=== PATIENT | female | born 1960 ===

== ENCOUNTER 2017-03-23 05:47 | Inpatient (IN) | payer OTHER ==
--- NOTE | 2017-03-22 09:46 | GHP ---
[f rep st] PREOP HISTORY AND PHYSICAL HISTORY: The patient is a 56-year-old female, who presents with longstanding right knee pain, more than 5 years. She has pain with activities. She has stiffness, swelling and she is limping. She has tricompartment right knee osteoarthritis. She has tried appropriate conservative measures, including medications and exercises and steroid injection as well as viscosupplementation. Her arthritic knee is impacting her quality of life. She has elected to proceed with a right total knee arthroplasty. ALLERGIES: No known drug allergies. SOCIAL HISTORY: She is a nonsmoker. MEDICATIONS: She is using losartan 25 mg tablets as well as Voltaren 1% topical gel. PAST SURGICAL HISTORY: GI surgery in 2010. REVIEW OF SYSTEMS: Negative for cardiopulmonary disease. PHYSICAL EXAM: GENERAL: The patient is a well-developed, well-nourished female in no apparent distress. HEAD AND NECK: Normocephalic, atraumatic. CHEST: Clear. CARDIOVASCULAR: Regular rate and rhythm. ABDOMEN: Soft. NEUROLOGIC: She is alert and oriented x3. EXTREMITIES: Examination of the right knee shows a flexion contracture of 10 degrees, she is flexing to about 120 degrees. Ligamentously, the knee appears stable though there is pseudolaxity medially where she is arthritic. She has significant medial joint line tenderness and tenderness around the patellar facets as well. Skin and neurovascular exam is intact. IMAGING: X-rays show right knee tricompartment osteoarthritis severe in the medial and patellofemoral spaces that are bone to bone. There is degenerative lipping, subchondral sclerosis and varus malalignment. IMPRESSION: Right knee osteoarthritis. PLAN: Right total knee arthroplasty. Benefits and risks of surgery have been reviewed. She understands that the risks include infection, damage to blood vessel or nerve, failure or loosening of the components and need for revision, blood clot in the leg or lungs, bleeding and need for transfusion. I have reviewed the rigorous nature of the rehabilitation. She has signed a consent form and she wishes to proceed. /[id number]/MODL MTDD
[2017-03-23] MEDS ORDERED: ROPIVACAINE 0.2% 80 MG, EPINEPHrine 0.2 MG, KETOROLAC TROMETHAMINE 30 MG in BAG 0 ML IU ONE (06:00)
[2017-03-23] MEDS ORDERED: FAMOTIDINE 20 MG TAB PO ONE (06:00)
[2017-03-23] MEDS ORDERED: ACETAMINOPHEN 325 MG TAB PO ONE (06:00)
[2017-03-23] MEDS ORDERED: POVIDONE-IODINE 20 ML in SODIUM CL IRRIG SOLUTION 500 ML IRR ONE (06:00)
[2017-03-23] MEDS ORDERED: TRANEXAMIC ACID 850 MG in NS 100 ML IV ONE (06:00)
[2017-03-23] MEDS ORDERED: ceFAZolin 2 GM/SWFI 2 GM/20 ML SYR IVP ONE (06:00)
[2017-03-23] MEDS ORDERED: TRANEXAMIC ACID 1,700 MG in NS 100 ML IV ONE (06:00)
[2017-03-23] MEDS ORDERED: DEXAMETHASONE 4 MG/ML VIAL IVP ONE (06:00)
[2017-03-23] MEDS ORDERED: LIDOCAINE 1% 2 ML INJ ID PRN (06:10)
[2017-03-23] MEDS ORDERED: LR 1,000 ML IV ONE (06:10)
[2017-03-23] MEDS ORDERED: ceFAZolin 1 GM/5 ML SYR ONE (06:17)
[2017-03-23] MEDS ORDERED: MIDAZOLAM 2 MG/2 ML VIAL IVP ONE (07:11)
--- NOTE | 2017-03-23 07:13 | PDANEPAE ---
ANE Past Medical History - Cardiovascular History Hx Hypertension: Yes Hx Arrhythmias: No Hx Chest Pain: No Hx Coronary Artery / Peripheral Vascular Disease: No Hx CHF / Valvular Disease: No Hx Palpitations: No Cardiovascular History Comment: pcp monitoring bp- recently started lisinopril to have good bp's for surgery - Pulmonary History Hx COPD: No Hx Asthma/Reactive Airway Disease: No Hx Recent Upper Respiratory Infection: No Hx Oxygen in Use at Home: No Hx Sleep Apnea: No Sleep Apnea Screening Result - Last Documented: Negative - Neurologic History Hx Cerebrovascular Accident: No Hx Seizures: No Hx Dementia: No - Endocrine History Hx Diabetes: No - Renal History Hx Renal Disorders: No - Liver History Hx Hepatic Disorders: No - Neurological & Psychiatric Hx Hx Neurological and Psychiatric Disorders: No - Cancer History Hx Cancer: Yes Cancer History Comment: skin ca removed - Congenital Disorder History Hx Congenital Disorders: No - GI History Hx Gastrointestinal Disorders: No - Other Health History Other Health History: wears glasses occ - Chronic Pain History Chronic Pain: Yes (right knee) - Surgical History Prior Surgeries: halley ANE Review of Systems Review of Systems: - Exercise capacity METS (RN): 4 METS ANE Patient History - Allergies Allergies/Adverse Reactions: No Known Allergies Allergy (Verified 02/16/17 10:38) - Home Medications Home Medications: Cholecalciferol Vit D3 [Vitamin D3 2000 units tab (OTC)] 2,000 units PO DAILY [Last Taken 03/15/17] Herbals/Supplements -Info Only 1 ea PO DAILY 02/11/17 [Last Taken 03/15/17] Ibuprofen [Motrin (*)] 200 mg PO DAILY PRN 02/11/17 [Last Taken 03/15/17] Losartan Potassium 25 mg 03/23/17 [Last Taken 03/22/17] - NPO status NPO Since - Liquids (Date): 03/22/17 NPO Since - Liquids (Time): 21:00 NPO Since - Solids (Date): 03/22/17 NPO Since - Solids (Time): 21:00 - Anes Hx Anes Hx: no prior problems - Smoking Hx Smoking Status: Never smoked - Family Anes Hx Family Hx Anesthesia Complications: none ANE Labs/Vital Signs - Vital Signs Blood Pressure: 136/81 Heart Rate: 66 Respiratory Rate: 20 O2 Sat (%): 94 Height: 166.37 cm Weight: 84.822 kg ANE Physical Exam - Airway Neck exam: FROM Mouth exam: normal dental/mouth exam - Pulmonary Pulmonary: no respiratory distress, no rales or rhonchi, clear to auscultation - Cardiovascular Cardiovascular: regular rate and rhythym, no murmur, rub, or gallop - ASA Status ASA Status: II ANE Anesthesia Plan Anesthesia Plan: spinal Regional Anesthesia: adductor canal FNB
[2017-03-23] MEDS ORDERED: MIDAZOLAM 2 MG/2 ML VIAL ONE (07:18)
[2017-03-23] MEDS ORDERED: BUPIVACAINE/EPI 0.5% 30 ML SDV ONE (07:24)
[2017-03-23] MEDS ORDERED: fentaNYL 100 MCG/2 ML INJ ONE (07:25)
[2017-03-23] MEDS ORDERED: PROPOFOL/EMULSION 500 MG/50 ML BOTTLE IV ONE (07:26)
[2017-03-23] MEDS ORDERED: DEXAMETHASONE 4 MG/ML VIAL ONE ×2 (07:26)
[2017-03-23] MEDS ORDERED: LIDOCAINE 2% 5 ML SDV ONE ×2 (08:23)
[2017-03-23] MEDS ORDERED: MEPERIDINE 25 MG/ML SYR IVP PRN (09:06)
[2017-03-23] MEDS ORDERED: PROMETHAZINE HCL 25 MG/ML INJ IVP PRN ×2 (09:06→10:16)
[2017-03-23] MEDS ORDERED: fentaNYL 100 MCG/2 ML INJ IVP PRN (09:06)
[2017-03-23] MEDS ORDERED: ACETAMINOPHEN 500 MG TAB PO PRN (09:06)
[2017-03-23] MEDS ORDERED: ONDANSETRON 4 MG/2 ML VIAL IVP PRN ×2 (09:06→10:16)
[2017-03-23] MEDS ORDERED: LABETALOL HCL 50 MG/10 ML SYR IVP PRN (09:06)
[2017-03-23] MEDS ORDERED: LR 500 ML IV PRN (09:06)
[2017-03-23] MEDS ORDERED: OXYCODONE/APAP 5/325 TAB PO PRN (09:06)
[2017-03-23] MEDS ORDERED: NALOXONE HCL 0.4 MG/ML INJ IVP PRN (09:06)
[2017-03-23] MEDS ORDERED: ENALAPRILAT DIHYDRATE 1.25 MG/ML VIAL IVP PRN (09:06)
[2017-03-23] MEDS ORDERED: ONDANSETRON 4 MG/2 ML VIAL ONE (10:03)
--- NOTE | 2017-03-23 10:13 | POSTANESTH ---
Post Anesthetic Evaluation Cardiovascular Status: Normal, Stable, Similar to Pre-Op Cond Respiratory Status: Normal, Stable, Similar to Pre-op Cond. Level of Consciousness/Mental Status: Can Participate in Eval, Alert and Oriented Pain Control: Adequate, Prn Tx Ordered Nausea/Vomiting Control: Inadeq, Add Tx Reqired Complications Possibly Related to Anesthesia: None Noted
[2017-03-23] MEDS ORDERED: BISACODYL 10 MG SUPP PR PRN (10:16)
[2017-03-23] MEDS ORDERED: PROMETHAZINE HCL 25 MG SUPPR PR PRN (10:16)
[2017-03-23] MEDS ORDERED: METOCLOPRAMIDE 10 MG/2 ML VIAL IVP PRN (10:16)
[2017-03-23] MEDS ORDERED: diphenhydrAMINE 25 MG CAP PO PRN (10:16)
[2017-03-23] MEDS ORDERED: POLYETHYLENE GLYCOL 3350 17 GM PKT PO PRN (10:16)
[2017-03-23] MEDS ORDERED: LACTULOSE 20 GM/30 ML UDCUP PO PRN (10:16)
[2017-03-23] MEDS ORDERED: TEMAZEPAM 15 MG CAP PO PRN (10:16)
[2017-03-23] MEDS ORDERED: MAGNESIUM HYDROXIDE 30 ML UDCUP PO PRN (10:16)
[2017-03-23] MEDS ORDERED: CYCLOBENZAPRINE 10 MG TAB PO PRN (10:16)
[2017-03-23] MEDS ORDERED: ONDANSETRON DISINTEGRATING 4 MG TAB PO PRN (10:16)
[2017-03-23] MEDS ORDERED: KETOROLAC 30 MG/1 ML SDV IVP PRN (10:16)
[2017-03-23] MEDS ORDERED: DIPHENOXYLATE/ATROPINE LOMOTIL 1 TAB PO PRN (10:16)
[2017-03-23] MEDS ORDERED: LR 1,000 ML IV SCH (10:30)
--- NOTE | 2017-03-23 10:40 | GOP ---
[f rep st] OPERATIVE REPORT DATE OF OPERATION: 03/23/2017 SURGEON: Anderson Gaitan MD LIDAR ANALYST: Emil Valenzuela [facility], A ANESTHESIOLOGIST: Anderson Zepeda MD. PREOPERATIVE DIAGNOSIS: Right knee osteoarthritis. POSTOPERATIVE DIAGNOSIS: Right knee osteoarthritis. PROCEDURE PERFORMED: Right total knee arthroplasty. FINDINGS: SPECIMENS: Include excised bone. ESTIMATED BLOOD LOSS: Minimal. INDICATIONS: The patient is a 56-year-old female, who presents with severe right knee tricompartment osteoarthritis, bone to bone in the medial compartment. She has tried appropriate conservative montez ures, has significant functional disability with the knee, and pain. X-rays show tricompartment oste oarthritis, degenerative lipping, [id number] contact, subchondral sclerosis, varus malalignment. A total knee arthroplasty is planned. DESCRIPTION OF PROCEDURE: The patient was taken to the operating room, and a spinal anesthetic was s upplied by Dr. Zepeda. She received tranexamic acid as well as 2 g of IV Ancef. In the supine positi on with a rolled towel beneath the right hip to neutralize rotation, the right knee was prepped and d raped out with chlorhexidine in the usual fashion. The limb was elevated, exsanguinated, tourniquet inflated to 275 mmHg. A longitudinal incision was made in the midline. I used a medial parapatellar arthrotomy. I inverted the patella. The patella was relatively thin at about 21 mm. I removed 9 m m of bone and cartilage and sized the undersurface of the patella to a size 35. I drilled appropriat e peg holes. With the trial component, the thickness of the patella was reestablished, and I removed any overlapping osteophytes. Patella was inverted, flexed the knee, drilled a marine pilot hole in the dis honorio femur, and applied an intramedullary alignment jig. I used a 5-degree valgus cut, no extra bone was required, no flexion contracture. I sized the distal femur between a 4 and a 5. I downsized to the 4. I adjusted my cutting block to avoid notching, and I completed the anterior, posterior, and c hamfer cuts as well as the notch cuts for this bi-cruciate stabilized knee. The size 4 component was a good fit. I used an extramedullary device on the tibia. I adjusted for rotation as well as poste rior slope and appropriate depth of cut. I made a perpendicular cut. I sized the tibia to a size 3. I dialed in the rotation and completed the tibial preparation. All the components were removed. A ntibiotic jet lavage was used. I cleaned out in the back of the knee. The surfaces were jet lavaged , and I applied cement to the tibia, and the tibial component was hammered into place. Likewise, the femoral and patellar components were applied. Once the cement had hardened, I did a series of trial reductions, looking for range of motion, full extension, soft tissue balance. A size 10 liner provi ded this. The liner was snapped into place. I infiltrated with a joint cocktail. The tourniquet wa s let down after 1 hour 30 minutes. I used a Betadine irrigation, then more saline antibiotic irriga tion. No drain was required. The arthrotomy was closed with interrupted [id number]-[id number] sutures of 0 Mersilene, subcutaneous tissue with 2-0 Monocryl, and the skin was closed with anthony. The wound was dressed with Betadine-soaked Adaptic, 4 x 4, sterile Webril, and a long-leg BILLIE stocking. There were no complications. DRAINS: None. COUNTS: All counts correct. DISPOSITION: The patient was taken in stable condition to Recovery. My lpn or medical assistant was essential to accomplish this total knee arthroplasty. SUMMARY OF COMPONENTS: This is a [employer] bi-cruciate stabilized knee, Oxinium femur , crosslink poly, all components cemented. Femur size 4, tibia size 3, patella 35, liner 10 mm. /[id number]/MODL
[2017-03-23] MEDS ORDERED: PROMETHAZINE HCL 25 MG/ML INJ ONE (10:56)
[2017-03-23] MEDS: ACETAMINOPHEN 325 MG TAB PO SCH ×2 (13:04→18:05)
[2017-03-23] MEDS: ceFAZolin 2 GM/DEXTROSE 100 ML IV SCH ×2 (14:07→20:49)
[2017-03-23] MEDS: oxyCODONE IR 5 MG TAB PO PRN ×2 (15:41→20:57)
[2017-03-23] MEDS: SENNOSIDES/DOCUSATE SODIUM TAB PO SCH (20:49)
[2017-03-23] MEDS: FAMOTIDINE 20 MG TAB PO SCH (20:49)
[2017-03-24] MEDS: ASPIRIN 325 MG TAB PO SCH ×2 (01:31→08:30)
[2017-03-24] MEDS: ACETAMINOPHEN 325 MG TAB PO SCH ×3 (01:32→11:15)
[2017-03-24 05:14] VITALS: TEMP 97.7
[2017-03-24 05:34] LABS: HEMATOCRIT 33.3 % (38.0-47.0); HEMOGLOBIN 11.3 g/dL (12.6-16.3)
--- NOTE | 2017-03-24 07:47 | SOAPPROG ---
SOAP Progress Note Assessment/Plan: Assessment: 03/24/17 POD#1 R TKA, pain controlled, Hct 33, mobility advancing Plan: 03/24/17 07:42 PT/OT, then home, asa oxy,home PT then out patient Objective: Vital Signs Temp Pulse Resp BP Pulse Ox 36.5 C 64 19 107/58 L 97 03/24/17 04:00 03/24/17 04:00 03/24/17 04:00 03/24/17 04:00 03/24/17 04:00 Laboratory Results 03/24/17 05:10 03/23/17 03/24/17 03/25/17 05:59 05:59 05:59 Intake Total 1205 Output Total 550 Balance 655 ICD10 Worksheet Patient Problems: Problems Problem Status Onset Osteoarthritis of right knee Acute - ICD10 Problem Qualifiers (1) Osteoarthritis of right knee
--- NOTE | 2017-03-24 07:56 | PDIAF ---
- Diagnosis Code Status: Full Code - Medication Management Discharge Medications: Medications to Continue on Transfer Cholecalciferol Vit D3 [Vitamin D3 2000 units tab (OTC)] 2,000 units PO DAILY [Last Taken 03/15/17] Herbals/Supplements -Info Only 1 ea PO DAILY 02/11/17 [Last Taken 03/15/17] Ibuprofen [Motrin (*)] 200 mg PO DAILY PRN 02/11/17 [Last Taken 03/15/17] Losartan Potassium [Cozaar 25 mg (*)] 25 - 50 mg PO DAILY 03/23/17 [Last Taken 03/22/17] Aspirin [Aspirin 325 mg (*)] 325 mg PO DAILY tab 03/24/17 [Last Taken Unknown] oxyCODONE IR [Oxycodone Ir (*)] 5 - 10 mg PO Q4 PRN #40 tab 03/24/17 [Last Taken Unknown] Discharge Medications: Refer to the Discharge Home Medication list for PRN reason. - Orders Services needed: Physical Therapy Diet Recommendation: no restrictions on diet Diet Texture: Regular Texture Diet Froy Stockings Discontinue Date: use for 2 weeks Wound Care Instructions: leukomed dressing at discharge, give extra dressing, keep wound covered Sutures/[place] Site: anthony, right knee, I will remove in 2 weeks in office Activity/Weight Bearing Restrictions: WBAT, full ROM - Follow Up Care Current Providers and Referrals: Azra Castillo MD [Primary Care Provider] -
[2017-03-24 08:16] VITALS: BP 126/74; PULSE 71; RESP 16; O2SAT 93
[2017-03-24] MEDS: FAMOTIDINE 20 MG TAB PO SCH (08:28)
[2017-03-24] MEDS: SENNOSIDES/DOCUSATE SODIUM TAB PO SCH (08:28)
[2017-03-24] MEDS ORDERED: LOSARTAN POTASSIUM 25 MG TAB PO SCH (09:00)
[2017-03-24] MEDS ORDERED: CHOLECALCIFEROL VIT D3 2,000 UNITS TAB/CAP PO SCH (09:00)
[2017-03-24] MEDS: oxyCODONE IR 5 MG TAB PO PRN (11:14)
--- NOTE | 2017-03-24 14:28 | ASMTCMCOM ---
CM Note CM Note Notes: Pt medically stable for d/c with [facility] PT. Pt address verified, record shows pt has different address than but pt verified she is at [address] Orders to be obtained in [place]. Date Signed: 03/24/2017 02:27 PM Electronically Signed By:ZBIGNIEW Espinoza
--- NOTE | 2017-03-24 14:29 | ASDISCHSUM ---
Discharge Information Plan Status:Home with Home Health Medically Cleared to Leave: Discharge Date:03/24/2017 12:50 PM CM D/C Disposition:Home Health Service ADT D/C Disposition:Home Health Service Projected Discharge Date:03/24/2017 11:00 AM Transportation at D/C: Discharge Delay Reason: Follow-Up Date:03/24/2017 11:00 AM Discharge Slot: Final Diagnosis: Placement Information Referral Type:*Home Health Care Services Referral ID:[id number] Provider Name:[facility] Address 1:[address] Address 2: City:[place] Selection Factors: State:[place] Patient Contact Information Contact Name:CRYSTALKASSIDY Relationship: Address:[address] City:[place] Alternate Phone: State/Zip Code:[place] [address] Email: Financial Information Financial Class:HMO and PPO Plans Primary Plan Desc:[employer]AR[employer] Primary Plan Number:[id number] Secondary Plan Desc: Secondary Plan Number: Assessment Information [facility] CM Progress Note CM Note CM Note Notes: Pt medically stable for d/c with [facility] PT. Pt address verified, record shows pt has different address than but pt verified she is at [address] Orders to be obtained in [employer]. Date Signed: 03/24/2017 02:27 PM Electronically Signed By:ZBIGNIEW Espinoza Intervention Information
== END 2017-03-24 12:50 | disposition home health service (06) | DRG 470 ==
LOC: F3N 05:47
PROVIDERS: ADMIT Orthopaedic Surgery; ATTEND Orthopaedic Surgery
PROC: 0SRC0J9 Replacement of Right Knee Joint with Synthetic Substitute, Cemented, Open Approach (ICD-10-PCS; principal; 2017-03-23 07:15)
DX: M17.11 Unilateral primary osteoarthritis, right knee (principal); I10 Essential (primary) hypertension
CPT/HCPCS: 97110-GP; 97116-GP; 97161-GP; 97165-GO; 97530-GP; C1713; J0171; J0690; J1100; J1885; J2250; J2405; J2550; J2704; J2795; J3010

== ENCOUNTER → 2018-05-06 | Outpatient (CLI) | payer OTHER | LOC: FIMAGING 12:43 | PROVIDERS: ATTEND Family Medicine | DX: Z12.31 Encounter for screening mammogram for malignant neoplasm of breast (principal); Z13.820 Encounter for screening for osteoporosis; Z78.0 Asymptomatic menopausal state ==